=== PATIENT | male | born 1990 | race Caucasian/White ===

== ENCOUNTER 2021-10-15 00:42 | Emergency (ER) | payer OTHER, SELFPAY ==
[2021-10-15 00:48] VITALS: PULSE 101; RESP 18; O2SAT 96; BMI 29.5
--- NOTE | 2021-10-15 00:55 | ECG_ITS ---
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 Measurements Intervals [place] Rate: 94 P: 37 RI: 112 QRS: -16 QRSD: 134 T: 39 QT: 361 QTc: 451 Interpretive Statements SINUS RHYTHM WITH SHORT RI INTERVAL INTRAVENTRICULAR CONDUCTION DELAY [130+ ms QRS DURATION] POSSIBLE LATERAL MYOCARDIAL INFARCTION , OF INDETERMINATE AGE [30 ms Q WAVE IN I/aVL/V5/V6] No previous ECG available for comparison Electronically Signed On 10-15-2021 23:57:24 [employer]WARE ARCHITECT by Wero Vick M.D. [id number]
--- NOTE | 2021-10-15 00:56 | ED_ITS ---
HPI - Dizziness General: Chief Complaint: Dizziness Stated Complaint: DIZZY/LIGHT HEADED/FEVER Time Seen by Provider: 10/15/21 00:44 History of Present Illness: HPI Narrative: Patient is a 31-year-old male comes to the ED via EMS with dizziness and lightheaded. Symptoms occurred just prior to arrival. 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 He states he collapsed down to the ground but denies falling and hitting his head or any loss of consciousness or headache. He then reports feeling really fatigued and weak and was able to get back into his squad car and called for help. He reports that his dizziness has improved while in ambulance on the way here. He still feels really fatigued and weak and a little lightheaded. Patient said he had been drinking plenty of fluids today and does not suspect that he is dehydrated. Denies any preceding symptoms or diaphoresis during dizziness episode. He has never had any symptoms like this before. Denies any chest pain, shortness of breath, abdominal pain, nausea/vomiting, bladder or bowel symptoms. Associated symptoms: Denies chest pain, chills, diaphoresis, headache(s), nausea, nasal congestion, palpitations or vomiting Associated neuro symptoms: Deny numbness in extremities Review of Systems Const: Reports: fatigue; Denies: fever(s), chills or diaphoresis Eyes: Denies: change in vision or eye discomfort ENMT: Denies: throat pain, odynophagia, nasal discharge or nasal congestion Card: Reports: lightheadedness; Denies: chest pain, palpitations, edema, swelling of feet/ankles, dyspnea on exertion or orthopnea Resp: Denies: dyspnea, productive cough or non-productive cough GI: Denies: abdominal pain, nausea, vomiting, diarrhea, constipation or hematochezia : Denies: flank pain, difficulty urinating, dysuria or hematuria Musc: Denies: neck pain, back pain or extremity swelling Skin/Breast: Denies: rash or new lesions Neuro: Reports: dizziness; Denies: headache(s), numbness in extremities or weakness in extremities Physical Exam Const: COMMON NORMALS: no acute distress, patient oriented x3 and alert GENERAL APPEARANCE: cooperative and comfortable HENMT: COMMON NORMALS: normocephalic HEAD & SCALP: normocephalic MOUTH: Normal oral and palatal mucosa present THROAT: posterior oropharynx normal and uvula midline Neck/C-Spine: COMMON NORMALS: supple GENERAL: Yes normal visual inspection Resp: COMMON NORMALS: normal respiratory effort, No retractions, No use of accessory muscles and clear to auscultation bilaterally AUSCULTATION: clear to auscultation bilaterally Cardio: COMMON NORMALS: regular rate, regular rhythm, S1 normal heart sound present, S2 normal heart sound present, No gallops present (Cardio), No clicks present (Cardio), No murmurs present (Cardio) and Peripheral pulses 2+ throughout RATE: regular rate RHYTHM: regular rhythm HEART SOUNDS: S1 normal heart sound present and S2 normal heart sound present PERIPHERAL PULSES: Peripheral pulses 2+ throughout GI: COMMON NORMALS: Normal to inspection, nondistended, normoactive bowel sounds present, Soft to palpation, non-tender and no masses PALPATION: Yes Soft to palpation : COMMON NORMALS: Yes no CVA tenderness BLADDER/KIDNEY EXAM: Yes no CVA tenderness Back/Pelvis: COMMON NORMALS: no CVA tenderness Extremity: COMMON NORMALS: normal to inspection Neuro: COMMON NORMALS: patient oriented x3 and moves all extremities SENSORIUM/ORIENTATION: Yes alert Skin: GENERAL SKIN EXAM: dry skin Course Reevaluation(s): Reevaluation #1: I went and talked with patient to let him know about labs and imaging results. He stated that he is feeling better currently and denies any current dizziness. He still feels a little fatigue and weakness and some mild muscle cramping. No other pain noted. Denies any abdominal pain. Time: 02:02 Reevaluation #2: I went in to reevaluate patient after he got ibuprofen and IV fluids. patient says he feels a lot better and is at his baseline. Patient still denies any chest pain, shortness of breath, upper respiratory symptoms, abdominal pain, bladder or bowel symptoms. Time: 03:11 Vital Signs: Vital signs: Vital Signs Temperature 100.8 F H 10/15/21 01:22 Pulse Rate 83 10/15/21 03:37 Respiratory Rate 17 10/15/21 03:37 Blood Pressure 136/67 10/15/21 03:37 Pulse Oximetry 96 10/15/21 03:37 MDM - Dizziness MDM Narrative: Medical decision making narrative: Patient is a 31-year-old male comes to the ED via EMS with dizziness and lightheaded. Symptoms occurred just prior to arrival. 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 He states he collapsed down to the ground but denies falling and hitting his head or any loss of consciousness or headache. He then reports feeling really fatigued and weak. Denies any shortness of breath, chest pain, abdominal pain, nausea/vomiting, diaphoresis, upper respiratory symptoms, bladder or bowel symptoms. Patient does have a temperature of 100.8 at home on arrival here in the ED but the rest of vitals are stable. Exam of patient is benign. He reports having some generalized muscle cramps. White blood cell count 13.9 but the rest of CBC and CMP were unremarkable. Troponin negative. UA unremarkable. Chest x-ray showed no acute findings. CT of head showed no acute findings. EKG showed normal sinus rhythm with no ST segment elevation or depression seen. Patient was given a dose of ibuprofen and IV fluids and he was feeling a lot better and most of his symptoms resolved. Patient diagnosed with postural dizziness with near syncope, fever, episodic lightheadedness generalized muscle cramps. He was discharged home with a prescription for a muscle relaxer. He was given strict return to ED precautions. She will to follow-up with his PCP in 5 to 7 days reevaluation. Patient understood and agreed with plan. Lab Data: Attestation: I reviewed the patient's lab results. Labs: Lab Results 10/14/21 10/14/21 10/14/21 23:54 23:54 23:54 WBC 13.9 10^3/uL H 10 ^3/uL (4.0-10.0) RBC 4.85 10^6/uL 10^6 /uL (4.1-5.3) Hgb 14.3 g/dL g/dL (11.7-16.6) Hct 42.6 % % (42.0-52.0) MCV 87.8 fl fl (80-94) MCH 29.5 pg pg (28.0-34.0) MCHC 33.6 g/dL g/dL (30.0-36.0) RDW 12.6 % % (12.1-15.1) Plt Count 197 10^3/cmm 10^3 /cmm (130-400) MPV 11.6 fL H fL (7.4-10.4) Neut % (Auto) 56.7 % % Lymph % (Auto) 33.6 % % [place] % (Auto) 7.4 % % Eos % (Auto) 1.5 % % Baso % (Auto) 0.4 % % Neut # (Auto) 7.90 10^3/uL H 10 ^3/uL (1.8-7.7) Lymph # (Auto) 4.7 10^3/uL 10^3/ uL (0.8-4.8) [place] # (Auto) 1.0 10^3/uL H 10^ 3/uL (0.2-0.9) Eos # (Auto) 0.2 10^3/uL 10^3/ uL (0.0-0.8) Baso # (Auto) 0.1 10^3/uL 10^3/ uL (0.0-0.1) Nucleated RBC % (a uto) 0 % % Nucleated RBCs # 0.0 /100WBC /100W BC Sodium 136 mmol/L mmol/L (136-145) Potassium 3.4 mmol/L L mmol /L (3.5-5.1) Chloride 97 mmol/L L mmol/ L (98-107) Carbon Dioxide 22 mmol/L mmol/L (22-29) Anion Gap 20.4 H (5-19) BUN 7 mg/dL mg/dL (6-20) Creatinine 0.8 mg/dL mg/dL (0.7-1.2) GFR Calculation 112.0 mL/min mL/m in (90-130) Glucose 146 mg/dL H mg/dL (65-115) Calculated Osmolal ity 283 mOsm/kg L mOs m/kg (285-295) Calcium 8.5 mg/dL mg/dL (8.5-10.5) Total Bilirubin 0.5 mg/dL mg/dL (0.15-1.2) AST 27 U/L U/L (0-40) ALT 25 U/L U/L (0-41) Alkaline Phosphata se 59 IU/L IU/L (40-130) Troponin T Baselin e 6 ng/L ng/L (0-15) Total Protein 7.1 g/dL g/dL (6.6-8.7) Albumin 4.4 g/dL g/dL (3.5-5.2) Globulin 2.7 g/dL g/dL (1.3-4.6) Lipase 51 U/L U/L (13-60) Urine Color Urine Appearance Urine pH Ur Specific Gravit y Urine Protein Urine Glucose (UA) Urine Ketones Urine Blood Urine Nitrate Urine Bilirubin Urine Urobilinogen Ur Leukocyte Ysabel ase 10/15/21 02:30 WBC RBC Hgb Hct MCV MCH MCHC RDW Plt Count MPV Neut % (Auto) Lymph % (Auto) [place] % (Auto) Eos % (Auto) Baso % (Auto) Neut # (Auto) Lymph # (Auto) [place] # (Auto) Eos # (Auto) Baso # (Auto) Nucleated RBC % (a uto) Nucleated RBCs # Sodium Potassium Chloride Carbon Dioxide Anion Gap BUN Creatinine GFR Calculation Glucose Calculated Osmolal ity Calcium Total Bilirubin AST ALT Alkaline Phosphata se Troponin T Baselin e Total Protein Albumin Globulin Lipase Urine Color Yellow (Yellow) Urine Appearance Clear (CLEAR) Urine pH 7 (5-7) Ur Specific Gravit y 1.005 (1.005-1.030) Urine Protein Neg (Negative) Urine Glucose (UA) Norm (Normal) Urine Ketones Negative (Negative) Urine Blood Neg (Negative) Urine Nitrate Negative (Negative) Urine Bilirubin Neg (Negative) Urine Urobilinogen Neg mg/dL mg/dL (Negative) Ur Leukocyte Ysabel ase Negative (Negative) Imaging Data^: CXR: Attestation: I personally reviewed and interpreted this imaging study as follows: Radiologist's impression: [address] [address] XRay Report Signed Patient: Kevin Dickerson Unit #: [id number] : 1990 Age/Sex: 31 / M ADM Date: 10/15/21 Loc: ER Room/Bed: Attending Dr: Ordering Provider/Ordering MD: Vickey Henson Date of Service: 10/15/21 Procedure(s): XR chest 1V portable [id number] Accession Number(s): [id number] Report Number: [id number] PROCEDURE INFORMATION: Exam: XR Chest Exam date and time: 10/15/2021 12:55 AM Age: 31 years old Clinical indication: Other: Near syncope; Additional info: Lightheaded TECHNIQUE: Imaging protocol: XR of the chest. Views: 1 view. COMPARISON: No relevant prior studies available. FINDINGS: Lungs: No CHF/pulmonary edema. Poor inspiration somewhat limits evaluation, especially of the lung bases. Visible lungs appear essentially clear. Pleural spaces: No visible pneumothorax. No definite pleural fluid. Heart/Mediastinum: Heart size is within normal limits. Bones/joints: No significant acute finding. XR/XR chest 1V portable [id number] IMPRESSION: 1. Essentially unremarkable single view chest. 2. Other findings discussed above. Dictated By: Ernie Mars MD Signed By: Ernie Mars MD Signed Date/Time: 10/15/21141 DD/ 0055 CT Head: Attestation: I personally reviewed and interpreted this imaging study as follows: Radiologist's impression: [place] [address] CT Scan Report Signed Patient: Kevin Dickerson Unit #: [id number] : 1990 Age/Sex: 31 / M ADM Date: 10/15/21 Loc: ER Room/Bed: Attending Dr: Ordering Provider/Ordering MD: Vickey Henson Date of Service: 10/15/21 Procedure(s): CT head wo con* [id number] Accession Number(s): [id number] Report Number: [id number] PROCEDURE INFORMATION: Exam: CT Head Without Contrast Exam date and time: 10/15/2021 12:56 AM Age: 31 years old Clinical indication: Dizziness; Additional info: Lightheaded/near syncopy TECHNIQUE: Imaging protocol: Computed tomography of the head without contrast. Radiation optimization: All CT scans at this facility use at least one of these dose optimization techniques: automated exposure control; mA and/or kV adjustment per patient size (includes targeted exams where dose is matched to clinical indication); or iterative reconstruction. COMPARISON: CT head wo con* [id number] 03/18/2019 10:34 PM RADIATION DOSE METRICS: Total DLP (mGy-cm): 934.77 FINDINGS: Brain: No acute intracranial hemorrhage or mass effect. No definite acute infarct by CT. MRI could be more sensitive/specific for detection, as clinically directed. Cerebral ventricles: Ventricle size is normal for age. Paranasal sinuses: Mild mucosal thickening in the ethmoid and frontal sinuses. Included paranasal sinuses otherwise appear essentially clear. Mastoid air cells: No significant acute finding. Bones/joints: No definite acute skull fracture. CT/CT head wo con* [id number] IMPRESSION: 1. No acute intracranial hemorrhage or mass effect. 2. No definite acute infarct by CT, see above. 3. Other findings discussed above. Dictated By: Ernie Mars MD Signed By: Ernie Mars MD Signed Date/Time: 10/15/21136 DD/ EKG Data^: EKG 1: Attestation: I personally reviewed and interpreted this EKG as follows: EKG interpretation date: 10/15/21 Interpretation: Normal sinus rhythm, no ST-T segment elevation or depression seen. 94 bpm. Discharge Plan Discharge Patient Disposition: Home Clinical Impression: Episodic lightheadedness, Postural dizziness with near syncope, Cramps, muscle, general Fever Qualifiers: Fever type: unspecified Qualified Code(s): R50.9 - Fever, unspecified Condition: Stable Prescriptions: New cyclobenzaprine 10 mg tablet 10 mg PO BID PRN (Reason: muscle spasm) Qty: 12 RF: 0 Discharge Orders: Discharge ED (Routine); Ordered 10/15/21 Ordered By: Vickey Henson Discharge Diet: Regular Discharge Activity: Increase activity as tolerated Patient Instructions: Fever in Adults (ED), Lightheadedness (ED), Dizziness (ED) Activity Restrictions/Additional Instructions: Follow-up with medical provider as directed in 5 to 7 days reevaluation. Take medications as prescribed. Cyclobenzaprine is a muscle relaxer and can cause some drowsiness so take at night before going to bed. Return to the ER or your medical provider if condition worsens. Please read and understand discharge instructions. Thank you for choosing [facility] for your healthcare needs today. Please realize this is an emergency room and that we are providing you with a medical screening exam and this may not be complete and all inclusive of all the testing and or work up that you may need to determine your ailment or severity of your illness. It is very important that you follow up as instructed or that you return to the Emergency Department should you have concerns or if your condition changes or worsens in any way. Coding Level of Care Code ED [employer] for Tavares Rossi Exam Comprehensive
[2021-10-15 01:08] LABS: Basophils # 0.1 10^3/uL (0.0-0.1); Basophils % 0.4 %; Eosinophils # 0.2 10^3/uL (0.0-0.8); Eosinophils % 1.5 %; Hematocrit 42.6 % (42.0-52.0); Hemoglobin 14.3 g/dL (11.7-16.6); Lymphocytes # 4.7 10^3/uL (0.8-4.8); Lymphocytes % 33.6 %; Mean Corpuscular HGB Conc 33.6 g/dL (30.0-36.0); Mean Corpuscular Hemoglobin 29.5 pg (28.0-34.0); Mean Corpuscular Volume 87.8 fl (80-94); Mean Platelet Volume 11.6 fL (7.4-10.4); Monocytes % 7.4 %; Neutrophils % 56.7 %; Nucleated Red Blood Cells % 0 %; Platelet Count 197 10^3/cmm (130-400); Red Blood Count 4.85 10^6/uL (4.1-5.3); Red Cell Distribution Width 12.6 % (12.1-15.1); White Blood Count 13.9 10^3/uL (4.0-10.0)
[2021-10-15 01:22] VITALS: BP 112/77; PULSE 92; RESP 18; TEMP 38.2; O2SAT 98
[2021-10-15 01:38] LABS: Troponin(5th) Baseline 6 ng/L (0-15)
[2021-10-15 01:41] LABS: Alanine Aminotransferase 25 U/L (0-41); Albumin Level 4.4 g/dL (3.5-5.2); Alkaline Phosphatase 59 IU/L (40-130); Anion Gap 20.4 (5-19); Aspartate Amino Transferase 27 U/L (0-40); Blood Urea Nitrogen 7 mg/dL (6-20); Calcium 8.5 mg/dL (8.5-10.5); Carbon Dioxide 22 mmol/L (22-29); Chloride 97 mmol/L (98-107); Globulin 2.7 g/dL (1.3-4.6); Glucose 146 mg/dL (65-115); Lipase 51 U/L (13-60); Osmolality Calculated 283 mOsm/kg (285-295); Potassium 3.4 mmol/L (3.5-5.1); Sodium 136 mmol/L (136-145); Total Bilirubin 0.5 mg/dL (0.15-1.2); Total Protein 7.1 g/dL (6.6-8.7)
[2021-10-15 01:48] LABS: Slide Review Slide Review Perform
[2021-10-15] MEDS: sodium chloride 0.9% 1,000 ML 999 ML IV (02:00)
[2021-10-15 02:34] LABS: Add Urine Microscopic? NO; Charge for UA Resulting for Rev
[2021-10-15 02:42] LABS: Bilirubin Urine Neg (Negative); Blood Urine Neg (Negative); Glucose Urine UA Norm (Normal); Ketones Urine Negative (Negative); Leukocyte Esterase Urine Negative (Negative); Nitrate Urine Negative (Negative); Protein Urine Neg (Negative); Specific Gravity, Urine 1.005 (1.005-1.030); Urine Appearance Clear (CLEAR); Urine Color Yellow (Yellow); Urobilinogen Urine Neg (Negative); pH Urine 7 (5-7)
--- NOTE | 2021-10-15 02:55 | ECG_ITS ---
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 Measurements Intervals [place] Rate: 81 P: 61 WV: 146 QRS: -12 QRSD: 133 T: 36 QT: 370 QTc: 430 Interpretive Statements SINUS RHYTHM INTRAVENTRICULAR CONDUCTION DELAY [130+ ms QRS DURATION] Compared to ECG 10/15/2021 01:04:34 Short [place] interval no longer present Myocardial infarct finding no longer present Electronically Signed On 10-16-2021 0:09:22 FISH FARM LABORER by Wero Vick M.D. [id number]
[2021-10-15 03:11] VITALS: BP 122/77; PULSE 87; O2SAT 97
[2021-10-15] MEDS: ibuprofen 800 mg tablet PO (03:18)
[2021-10-15] MEDS: orphenadrine 30 mg/mL Inj 2 mL 60 MG IVP (03:19)
[2021-10-15 03:37] VITALS: BP 136/67; PULSE 83; RESP 17; O2SAT 96
== END 2021-10-15 03:39 | disposition home or self-care (01) ==
PROVIDERS: Emergency Provider Physician Assistant
DX: R55 Syncope and collapse (principal); R42 Dizziness and giddiness; R25.2 Cramp and spasm
CPT/HCPCS: 70450; 71045; 80053; 81003; 83690; 84484; 85025; 93005; 96361; 96374; 99284; J2360; J7030